=== PATIENT | male | born 2000 | race Hispanic/Latino ===

== ENCOUNTER 2023-06-03 08:48 | Emergency (ER) | payer BC ==
[2023-06-03 10:22] LABS: #Monocytes 0.3 thou/uL (0.11-0.59); #Neutrophils 5.1 thou/uL (1.40-6.50); %Basophils 0.2 % (0.0-1.0); %Eosinophils 0.6 % (0.0-10.0); %Lymphocytes 11.5 % (21.0-51.0); %Monocytes 5.1 % (0.0-10.0); %Neutrophils 82.3 % (42.0-75.0); Hematocrit 46.5 % (42.0-52.0); Hemoglobin 15.9 g/dL (14.0-18.0); Mean Corpuscular HGB CONC 34.2 g/dL (32.0-36.0); Mean Corpuscular Hemoglobin 31.5 pg (27.0-31.0); Mean Corpuscular Volume 92.3 fl (78.0-98.0); Mean Platelet Volume 11.4 fL (7.4-10.4); Platelet Count 159 10x3/uL (130-400); RBC Distribution Width 12.2 % (11.5-14.5); Red Blood Cell (RBC) Count 5.04 mill/uL (4.70-6.10); White Blood Cell (WBC) Count 6.2 10x3/uL (4.8-10.8)
[2023-06-03 10:40] LABS: ALT (SGPT) 20 U/L (8-55); AST (SGOT) 15 U/L (5-34); Albumin 4.5 g/dL (3.5-5.0); Alkaline Phosphatase 72 U/L (40-110); Anion Gap 12 mmol/L (10-20); BUN (Urea Nitrogen) 7 mg/dL (8.9-20.6); Bilirubin, Total 1.2 mg/dL (0.2-1.2); Calc. Creatinine Clearance 0 mL/min (70-130); Calcium 9.4 mg/dL (7.8-10.44); Carbon Dioxide 26 mmol/L (22-29); Chloride 105 mmol/L (98-107); Estimated GFR 126; Globulin 2.6 g/dL (2.4-3.5); Glucose 103 mg/dL (70-105); Protein, Total 7.1 g/dL (6.0-8.3); Sodium 139 mmol/L (136-145)
[2023-06-03 10:43] LABS: Troponin I Less than 0.010 ng/mL (< 0.028)
== END 2023-06-03 11:50 | disposition home or self-care (01) ==
LOC: ERS 08:48
DX: R07.89 Other chest pain (principal); R03.0 Elevated blood-pressure reading, without diagnosis of hypertension
CPT/HCPCS: 36415; 71045; 80053; 83880; 84484; 85025; 85379; 93005

== ENCOUNTER 2023-10-09 08:50 | Outpatient (CLI) | payer BC | END 2023-10-09 08:51 | disposition home or self-care (01) | LOC: BICRAD 08:50 | PROVIDERS: ATTEND Family Medicine | DX: M25.512 Pain in left shoulder (principal) | CPT/HCPCS: 71046 ==